=== PATIENT | female | born 1930 | race Caucasian/White ===

== ENCOUNTER 2018-12-03 14:16 | Emergency (ER) | payer OTHER, MEDICARE ==
[~2018-12-03] VITALS: Ht 172.7 cm; Wt 77.1 kg
== END 2018-12-03 15:54 | disposition home or self-care (01) ==
LOC: ER 14:16
DX: S01.01XA Laceration without foreign body of scalp, initial encounter (principal); S61.512A Laceration without foreign body of left wrist, initial encounter; S61.511A Laceration without foreign body of right wrist, initial encounter; S40.021A Contusion of right upper arm, initial encounter; V89.2XXA Person injured in unspecified motor-vehicle accident, traffic, initial encounter
CPT/HCPCS: 71045; 73060; 90714